=== PATIENT | male | born 1935 | race African-American/Black ===

== ENCOUNTER 2021-09-08 08:03 | Outpatient (CLI) | payer MEDICARE | END 2021-09-08 08:04 | disposition home or self-care (01) | LOC: CSHCT 08:03 | PROVIDERS: ATTEND Physician Assistant Medical | DX: R10.11 Right upper quadrant pain (principal); K31.89 Other diseases of stomach and duodenum; N20.0 Calculus of kidney | CPT/HCPCS: 74177; 82565 ==